=== PATIENT | female | born 1975 | race African-American/Black ===

== ENCOUNTER 2016-05-31 23:47 | Emergency (ER) | payer MEDICAID ==
[~2016-05-31] VITALS: Ht 165.1 cm; Wt 59.0 kg
[2016-06-01] MEDS ORDERED: MORPHINE SULFATE 10 MG/ML CPJ IM ONE (00:15)
[2016-06-01] MEDS ORDERED: LORAZEPAM 2MG/ML CPJ IM ONE (00:15)
[2016-06-01] MEDS ORDERED: LIDOCAINE HCL/EPINEPHRINE 1%-EPI 1:100,000 20 ML VIAL MC ONE (00:15)
[2016-06-01] MEDS ORDERED: BACITRACIN ZINC OINT UDPKT TOP ONE (00:15)
[2016-06-01 01:50] VITALS: BP 121/69
== END 2016-06-01 02:59 | disposition home or self-care (01) ==
LOC: ER 23:50
DX: S05.32XA Ocular laceration without prolapse or loss of intraocular tissue, left eye, initial encounter (principal); S01.511A Laceration without foreign body of lip, initial encounter; S09.8XXA Other specified injuries of head, initial encounter; F12.10 Cannabis abuse, uncomplicated; Z88.0 Allergy status to penicillin; Y08.89XA Assault by other specified means, initial encounter; Y93.89 Activity, other specified; Y99.8 Other external cause status; Y92.89 Other specified places as the place of occurrence of the external cause
CPT/HCPCS: 12011; 70450; 70486; 81025; 96372; 99284; J2060; J2270; J3490; X7700; Z7610

== ENCOUNTER 2024-08-29 19:58 | Inpatient (IN) | payer MEDICAID, OTHER ==
[~2024-08-29] VITALS: Ht 170.2 cm; Wt 69.4 kg
[2024-08-29] MEDS ORDERED: METHYLPREDNISOLONE SOD SUCC 125MG/2ML (ACT-O-VIAL) IV ONE (21:00)
[2024-08-29] MEDS ORDERED: DIAZEPAM 5 MG/ML 2ML SYR IV ONE (21:00)
[2024-08-29] MEDS ORDERED: LORAZEPAM 2MG/ML INJ IM ONE (22:00)
[2024-08-29] MEDS: LORAZEPAM 2MG/ML UD SYRINGE IM NR (22:21)
[2024-08-29 23:28] LABS: CLARITY URINE CLOUDY (CLEAR); COLOR URINE ORANGE (YELLOW); GLUCOSE URINE NEGATIVE (NEGATIVE); KETONES URINE 1+ (NEGATIVE); LEUKOCYTE ESTERASE URINE NEGATIVE (NEGATIVE); NITRITE URINE NEGATIVE (NEGATIVE); OCCULT BLOOD URINE 3+ (NEGATIVE); PROTEIN URINE 1+ (NEGATIVE); SPECIFIC GRAVITY URINE 1.009 (1.005-1.030); UROBILINOGEN URINE 0.2 E.U./dL (0.2-1.0)
[2024-08-29 23:52] LABS: *AMPHETAMINES SCREEN URINE NEGATIVE (NEGATIVE); *BARBITURATES SCREEN URINE NEGATIVE (NEGATIVE); *BENZODIAZEPINES SCREEN URINE NEGATIVE (NEGATIVE); *COCAINE SCREEN URINE PRESUMPTIVE POSITIVE (NEGATIVE)
[2024-08-29 23:53] LABS: CANNABINOID URINE SCREEN NEGATIVE (NEGATIVE); ECSTASY MDMA SCREEN URINE NEGATIVE (NEGATIVE); METHADONE URINE SCREEN NEGATIVE (NEGATIVE); OPIATES URINE SCREEN NEGATIVE (NEGATIVE); PHENCYCLIDINE URINE SCREEN NEGATIVE (NEGATIVE)
[2024-08-30] VITALS (7 sets, daily range): BP systolic 128–160; BP diastolic 78–90; PULSE 83–94; RESP 16–22; TEMP 36.2–36.6; O2SAT 92–100
[2024-08-30] MEDS ORDERED: P20 MT (00:51)
[2024-08-30] MEDS ORDERED: LEVO1TAB56 MT (00:51)
[2024-08-30] MEDS: HYDROCODONE/ACETAMINOPHEN 10/325MG TABLET PO PRN (02:00)
[2024-08-30 02:53] LABS: HEMATOCRIT. 26.6 % (36.0-48.0); HEMOGLOBIN. 7.7 g/dL (12.0-16.0); MEAN CORPUSCULAR HEMOGLOBIN 16.5 pg (28.0-32.0); MEAN CORPUSCULAR HGB CONC 29.1 g/dL (31.0-37.0); MEAN CORPUSCULAR VOLUME 56.9 fL (81.0-99.0); MEAN PLATELET VOLUME 8.5 fl (7.4-10.4); RED BLOOD CELL COUNT 4.67 mill/uL (4.2-5.4); RED CELL DISTRIBUTION WIDTH 24.3 % (11.6-14.6)
[2024-08-30 03:03] LABS: DIFFERENTIAL COMMENT 1
[2024-08-30 03:06] LABS: INR 1.1; PLATELET 1073 x1000/uL (130-400); PROTHROMBIN TIME 11.9 sec (9.6-11.0)
[2024-08-30 03:08] LABS: CARBON DIOXIDE 28 mEq/L (21-32); CHLORIDE 101 mEq/L (98-107); POTASSIUM 3.3 mEq/L (3.5-5.1); SODIUM 139 mEq/L (136-145)
[2024-08-30 03:09] LABS: CALCIUM 9.4 mg/dL (8.7-10.4)
[2024-08-30 03:13] LABS: CREATININE 0.9 mg/dL (0.6-1.0); GLUCOSE 254 mg/dL (70-105)
[2024-08-30 03:14] LABS: UREA NITROGEN BLOOD < 5 mg/dL (9-23)
[2024-08-30 03:15] LABS: CREATINE KINASE 113 IU/L (34-145)
[2024-08-30 04:20] LABS: HCG SCREEN NEGATIVE
[2024-08-30 04:24] LABS: SQUAMOUS EPITHELIAL CELL URINE 1+ /lpf (RARE/1+)
[2024-08-30 04:26] LABS: WBC URINE 0-2 /hpf (0-2)
[2024-08-30 04:28] LABS: BACTERIA URINE 2+
[2024-08-30] MEDS: POTASSIUM CHLORIDE 20MEQ TABLET SR PO NR (05:49)
[2024-08-30] MEDS: CLONIDINE 0.1MG TABLET PO PRN (05:49)
[2024-08-30 09:52] LABS: CARBON DIOXIDE 27 mEq/L (21-32); CHLORIDE 100 mEq/L (98-107); POTASSIUM 3.7 mEq/L (3.5-5.1); SODIUM 137 mEq/L (136-145)
[2024-08-30 09:53] LABS: CALCIUM 8.9 mg/dL (8.7-10.4); HEMATOCRIT. 26.8 % (36.0-48.0); HEMOGLOBIN. 7.8 g/dL (12.0-16.0); MEAN CORPUSCULAR HEMOGLOBIN 16.3 pg (28.0-32.0); MEAN CORPUSCULAR HGB CONC 28.9 g/dL (31.0-37.0); MEAN CORPUSCULAR VOLUME 56.6 fL (81.0-99.0); MEAN PLATELET VOLUME 8.7 fl (7.4-10.4); RED BLOOD CELL COUNT 4.74 mill/uL (4.2-5.4); RED CELL DISTRIBUTION WIDTH 24.4 % (11.6-14.6); WHITE BLOOD COUNT 10.1 x1000/uL (4.5-11.0)
[2024-08-30] MEDS: AMLODIPINE 10MG TABLET PO SCH (09:56)
[2024-08-30] MEDS: PREDNISONE 20MG TABLET PO SCH (09:56)
[2024-08-30] MEDS: HYDROXYCHLOROQUINE SULFATE 200MG TABLET PO SCH (09:56)
[2024-08-30 09:58] LABS: CREATININE 0.7 mg/dL (0.6-1.0); GLUCOSE 106 mg/dL (70-105); UREA NITROGEN BLOOD 6 mg/dL (9-23)
[2024-08-30 10:06] LABS: DIFFERENTIAL COMMENT 1
[2024-08-30 10:07] LABS: PLATELET 1150 x1000/uL (130-400)
[2024-08-30 10:08] LABS: C REACTIVE PROTEIN HIGH SENS 42.87 mg/l (<1.00)
[2024-08-30 10:41] LABS: ERYTHROCYTE SEDIMENTATION RATE 44 mm/hr (0-20)
[2024-08-30 11:37] LABS: HYPOCHROMASIA 2+
[2024-08-30 11:38] LABS: ANISOCYTOSIS 3+; OVALOCYTES FEW
[2024-08-30 11:40] LABS: TEAR DROP CELLS FEW
[2024-08-30 11:41] LABS: MICROCYTOSIS 3+
[2024-08-30 11:43] LABS: PLATELET ESTIMATE MARKEDLY INCREASED
[2024-08-30 12:00] LABS: HEPATITIS B SURFACE ANTIGEN NEGATIVE (Negative)
[2024-08-30 12:21] LABS: HEPATITIS C AB NON REACTIVE (Neg) (Negative)
[2024-08-30] MEDS ORDERED: NALOXONE HCL 0.4MG/ML VIAL IV PRN (13:15)
[2024-08-30] MEDS: KETOROLAC 30MG/ML VIAL IV PRN (16:27)
[2024-08-30 16:55] LABS: ANISOCYTOSIS 2+; HYPOCHROMASIA 3+; PLATELET ESTIMATE MARKEDLY INCREASED
[2024-08-30 16:56] LABS: MICROCYTOSIS 3+; TEAR DROP CELLS 1+
[2024-08-30 16:57] LABS: GIANT PLATELETS 1+; OVALOCYTES 1+; TARGET CELLS 1+
[2024-08-31] VITALS: BP 133/87; PULSE 88; RESP 19; TEMP 36.6; O2SAT 96
[2024-08-31 04:00] VITALS: BP 135/78; PULSE 89; RESP 21; TEMP 36.4; O2SAT 95
[2024-08-31 08:00] VITALS: BP 151/86; PULSE 89; RESP 20; TEMP 36.7; O2SAT 100
[2024-08-31 12:00] VITALS: BP 155/87; PULSE 78; RESP 20; TEMP 36.6; O2SAT 100
[2024-08-31 16:00] VITALS: BP 118/74; PULSE 88; RESP 16; TEMP 36.6; O2SAT 99
[2024-08-31] MEDS ORDERED: NALOXONE HCL 0.4MG/ML VIAL IV PRN (16:00)
[2024-08-31] MEDS: OXYCODONE HCL/ACETAMINOPHEN 5/325MG TABLET PO PRN (16:37)
[2024-08-31] MEDS: DIPHENHYDRAMINE 50MG/ML VIAL IV PRN (18:57)
[2024-08-31 20:00] VITALS: BP 124/72; PULSE 71; RESP 18; TEMP 36.3; O2SAT 100
[2024-09-01] VITALS: BP 133/80; PULSE 80; RESP 17; TEMP 36.3; O2SAT 100
[2024-09-01 04:00] VITALS: BP 139/76; PULSE 70; RESP 18; TEMP 36.3; O2SAT 98
[2024-09-01 08:00] VITALS: BP 108/75; PULSE 88; RESP 18; TEMP 36.2; O2SAT 98
[2024-09-01 12:00] VITALS: BP 129/72; PULSE 89; RESP 20; TEMP 36.5; O2SAT 100
[2024-09-01 14:21] VITALS: RESP 20
[2024-09-01 16:08] VITALS: BP 129/72; PULSE 89; TEMP 97.7; O2SAT 100
[2024-09-01] MEDS ORDERED: P20 MT (16:29)
[2024-09-01] MEDS ORDERED: HYDR200T80 MT (16:29)
[2024-09-01] MEDS ORDERED: AMLO10TA80 MT (16:29)
[2024-09-10] MEDS ORDERED: DICL75TA5 PO (11:09)
[2024-09-10] MEDS ORDERED: BUPR100T13 PO (11:09)
[2024-09-10] MEDS ORDERED: [UNRECOGNIZED DRUG - CODE] PO (11:09)
[2024-09-10] MEDS ORDERED: PRED10TA PO (11:09)
[2024-09-10] MEDS ORDERED: AMLO10TA80 PO (11:09)
[2024-09-10] MEDS ORDERED: PREG100C55 PO (11:09)
[2024-09-10] MEDS ORDERED: HYDR-4001 PO (11:09)
[2024-09-10] MEDS ORDERED: FERR-63 PO (11:09)
[2024-09-10] MEDS ORDERED: POLY17PO43 PO (11:09)
[2024-09-10] MEDS ORDERED: HYDR200T80 PO (11:09)
[2024-09-14] MEDS ORDERED: OXYC-100 PO (08:32)
[2024-09-14] MEDS ORDERED: GABA-290 PO (08:32)
[2024-09-25] MEDS ORDERED: HYDR200T80 PO (12:00)
[2024-09-25] MEDS ORDERED: DICL75TA5 PO (12:00)
[2024-09-25] MEDS ORDERED: PRED10TA PO (12:00)
== END 2024-09-01 16:35 | disposition home or self-care (01) | DRG 346 ==
LOC: ER 19:58 → 7WST 23:02 → EDBEDREQTM 23:16 → EDBEDREQ 23:16 → ENRESERV 23:45
PROVIDERS: ADMIT Internal Medicine; ATTEND Internal Medicine
DX: M32.9 Systemic lupus erythematosus, unspecified (principal); D64.9 Anemia, unspecified; N92.0 Excessive and frequent menstruation with regular cycle; F14.90 Cocaine use, unspecified, uncomplicated; F17.210 Nicotine dependence, cigarettes, uncomplicated; G62.9 Polyneuropathy, unspecified; T44.995A Adverse effect of other drug primarily affecting the autonomic nervous system, initial encounter; Z88.0 Allergy status to penicillin; Y92.89 Other specified places as the place of occurrence of the external cause
CPT/HCPCS: 36415; 80048; 80305; 81003; 82550; 83735; 84703; 85025; 85651; 86038; 86141; 86705; 86850; 86900; 87340; 99291; A4606; J1200; J1885; J2060; J7512

== ENCOUNTER 2024-10-29 09:57 | Emergency (ER) | payer MEDICAID ==
[~2024-10-29] VITALS: Ht 160 cm; Wt 60.0 kg
[~2024-10-29 09:57] MED LIST: BUPR100T13 PO; DICL75TA5 PO; FERR-63 PO; HYDR-4001 PO; HYDR200T80 PO; LEVO1TAB56 MT; OXYC-100 PO; POLY17PO43 PO; PRED10TA PO; PREG100C55 PO; [UNRECOGNIZED DRUG - CODE] PO
[2024-10-29 10:01] VITALS: O2SAT 98
[2024-10-29] MEDS: IBUPROFEN 400MG TABLET PO ONE (10:58)
[2024-10-29] MEDS: HYDROCODONE/ACETAMINOPHEN 7.5/325MG TABLET PO ONE (10:59)
[2024-10-29 11:04] LABS: CLARITY URINE CLOUDY (CLEAR); COLOR URINE YELLOW (YELLOW); GLUCOSE URINE NEGATIVE (NEGATIVE); KETONES URINE TRACE (NEGATIVE); LEUKOCYTE ESTERASE URINE NEGATIVE (NEGATIVE); NITRITE URINE NEGATIVE (NEGATIVE); OCCULT BLOOD URINE NEGATIVE (NEGATIVE); PH URINE 8.5 (4.5-8.0); PROTEIN URINE NEGATIVE (NEGATIVE); SPECIFIC GRAVITY URINE 1.015 (1.005-1.030); UROBILINOGEN URINE 0.2 E.U./dL (0.2-1.0)
[2024-10-29] MEDS: CARISOPRODOL 350 MG TABLET PO ONE (11:15)
[2024-10-29 11:23] LABS: AMORPHOUS SEDIMENT URINE 1+ /lpf; BACTERIA URINE 4+; SQUAMOUS EPITHELIAL CELL URINE 1+ /lpf (RARE/1+); WBC URINE 0-2 /hpf (0-2)
[2024-10-29 11:24] LABS: RBC URINE NONE SEEN /hpf (0-2)
[2024-10-29 11:29] LABS: BASOPHILS % 0.7 % (0.0-2.0); EOSINOPHILS % 2.8 % (0.0-5.0); HEMATOCRIT. 37.3 % (36.0-48.0); HEMOGLOBIN. 11.6 g/dL (12.0-16.0); LYMPHOCYTES % 13.2 % (20.0-50.0); MEAN PLATELET VOLUME 9.1 fl (7.4-10.4); MONOCYTES % 6.7 % (2.0-8.0); NEUTROPHILS % 76.6 % (40.0-76.0); PLATELET 366 x1000/uL (130-400); RED BLOOD CELL COUNT 5.33 mill/uL (4.2-5.4); RED CELL DISTRIBUTION WIDTH 31.7 % (11.6-14.6)
[2024-10-29 11:32] LABS: ADD RBC MORPHOLOGY YES
[2024-10-29 11:37] LABS: *AMPHETAMINES SCREEN URINE NEGATIVE (NEGATIVE); *BARBITURATES SCREEN URINE NEGATIVE (NEGATIVE); *BENZODIAZEPINES SCREEN URINE NEGATIVE (NEGATIVE); *COCAINE SCREEN URINE PRESUMPTIVE POSITIVE (NEGATIVE); CANNABINOID URINE SCREEN NEGATIVE (NEGATIVE); ECSTASY MDMA SCREEN URINE NEGATIVE (NEGATIVE); METHADONE URINE SCREEN NEGATIVE (NEGATIVE); OPIATES URINE SCREEN NEGATIVE (NEGATIVE); PHENCYCLIDINE URINE SCREEN NEGATIVE (NEGATIVE)
[2024-10-29 11:40] LABS: INR 1.0
[2024-10-29 11:44] LABS: CREATININE 0.6 mg/dL (0.6-1.0); ETHANOL BLOOD < 10 mg/dL (<10); HCG SCREEN NEGATIVE; UREA NITROGEN BLOOD < 5 mg/dL (9-23)
[2024-10-29 11:45] LABS: ASPARTATE AMINOTRANSFERASE 13 IU/L (<34)
[2024-10-29 11:46] LABS: BILIRUBIN DIRECT < 0.1 mg/dL (<=3.0); BILIRUBIN TOTAL 0.3 mg/dL (0.1-1.0); PHOSPHORUS 2.3 mg/dL (2.5-4.9); PROTEIN TOTAL 7.5 g/dL (6.0-8.3)
[2024-10-29 11:50] LABS: PLATELET ESTIMATE NORMAL
[2024-10-29] MEDS ORDERED: HYDR-4001 MT (12:05)
[2024-10-29] MEDS ORDERED: PREG100C MT (12:13)
[2024-10-29] MEDS ORDERED: BUPR100T13 MT (12:13)
[2024-10-29] MEDS: METHYLPREDNISOLONE SOD SUCC 125MG/2ML (ACT-O-VIAL) IM ONE (12:25)
[2024-10-29] MEDS: POTASSIUM CHLORIDE 20MEQ TABLET SR PO ONE (12:25)
[2024-10-29] MEDS: POTASSIUM-SODIUM PHOSPHATE POWDER PACKET PO ONE (12:26)
[2024-10-29] MEDS: BUPROPION HCL 100MG SR TABLET PO ONE (12:26)
[2024-10-29 12:44] VITALS: BP 130/78; PULSE 90; RESP 16; TEMP 36.8; O2SAT 99
[2024-11-18] MEDS ORDERED: BUPR75TA94 PO (12:55)
[2024-11-18] MEDS ORDERED: HYDR200T80 PO (12:55)
[2024-11-18] MEDS ORDERED: METH2.5T PO (12:55)
[2024-11-18] MEDS ORDERED: FERR-63 PO (12:55)
[2024-11-18] MEDS ORDERED: PREG75CA76 PO (12:55)
[2024-11-18] MEDS ORDERED: ASCO-494 PO (12:55)
[2024-11-18] MEDS ORDERED: FOLI-43 PO (12:55)
[2024-11-18] MEDS ORDERED: PRED10TA PO ×2 (12:55)
== END 2024-10-29 13:00 | disposition home or self-care (01) ==
LOC: ER 09:57
DX: G89.29 Other chronic pain (principal); M79.7 Fibromyalgia; I10 Essential (primary) hypertension; F11.10 Opioid abuse, uncomplicated; Z88.1 Allergy status to other antibiotic agents; Z88.0 Allergy status to penicillin; Z76.0 Encounter for issue of repeat prescription; Z79.899 Other long term (current) drug therapy; Z87.891 Personal history of nicotine dependence; Z86.73 Personal history of transient ischemic attack (TIA), and cerebral infarction without residual deficits
CPT/HCPCS: 80076; 80305; 80048; 81003; 81025; 80320; 82550; 84703; 83690; 83735; 84100; 85025; 85610; 36415; 93005; 96372; 99284; J2919; Z7610; G0480

== ENCOUNTER 2024-12-20 11:18 | Emergency (ER) | payer MEDICAID ==
[~2024-12-20] VITALS: Ht 167.6 cm; Wt 69.0 kg
[~2024-12-20 11:18] MED LIST changes: +ASCO-494 PO; -BUPR100T13 PO; +BUPR75TA94 PO; +FOLI-43 PO; -HYDR-4001 PO; -LEVO1TAB56 MT; +METH2.5T PO; -OXYC-100 PO; -PREG100C55 PO; +PREG75CA76 PO
[2024-12-20 11:20] VITALS: TEMP 36.6; O2SAT 100
[2024-12-20 11:51] LABS: BASOPHILS % 0.8 % (0.0-2.0); EOSINOPHILS % 3.0 % (0.0-5.0); HEMATOCRIT. 32.6 % (36.0-48.0); HEMOGLOBIN. 10.1 g/dL (12.0-16.0); LYMPHOCYTES % 11.5 % (20.0-50.0); MEAN PLATELET VOLUME 7.0 fl (7.4-10.4); MONOCYTES % 8.1 % (2.0-8.0); NEUTROPHILS % 76.6 % (40.0-76.0); PLATELET 471 x1000/uL (130-400); RED BLOOD CELL COUNT 4.36 mill/uL (4.2-5.4); RED CELL DISTRIBUTION WIDTH 19.4 % (11.6-14.6)
[2024-12-20] MEDS: KETOROLAC 15MG/ML VIAL IV ONE (12:02)
[2024-12-20] MEDS: SODIUM CHLORIDE 0.9% 1,000 ML IV ONE (12:03)
[2024-12-20 12:09] LABS: CREATININE 0.6 mg/dL (0.6-1.0); UREA NITROGEN BLOOD 7 mg/dL (9-23)
[2024-12-20 12:10] LABS: TROPONIN I HIGH SENSITIVITY < 4 ng/L (3.0-34)
[2024-12-20 12:11] LABS: ASPARTATE AMINOTRANSFERASE 17 IU/L (<34); BILIRUBIN DIRECT < 0.1 mg/dL (<=3.0); BILIRUBIN TOTAL 0.3 mg/dL (0.1-1.0)
[2024-12-20 12:12] LABS: PROTEIN TOTAL 6.7 g/dL (6.0-8.3)
[2024-12-20 12:20] LABS: INR 1.0
[2024-12-20 12:21] LABS: HCG SCREEN NEGATIVE
[2024-12-20] MEDS: METHYLPREDNISOLONE SOD SUCC 125MG/2ML (ACT-O-VIAL) IV ONE (12:26)
[2024-12-20] MEDS: MORPHINE SULFATE 4 MG/ML INJ (FOR IV/IM USE) IV ONE (12:28)
[2024-12-20] MEDS ORDERED: P50 MT (15:09)
[2024-12-20] MEDS ORDERED: DICL75TA5 PO (15:09)
[2024-12-20 15:18] VITALS: O2SAT 100
[2024-12-20 15:28] VITALS: BP 150/91; PULSE 88; RESP 18
[2024-12-20] MEDS: OXYCODONE HCL/ACETAMINOPHEN 5/325MG TABLET PO ONE (15:28)
[2025-01-15] MEDS ORDERED: HYDR200T35 PO (14:09)
[2025-01-15] MEDS ORDERED: P20 PO (14:09)
[2025-01-15] MEDS ORDERED: GABA-290 PO (21:36)
== END 2024-12-20 15:49 | disposition home or self-care (01) ==
LOC: ER 11:44
DX: M32.9 Systemic lupus erythematosus, unspecified (principal); F41.9 Anxiety disorder, unspecified; E11.9 Type 2 diabetes mellitus without complications; F31.9 Bipolar disorder, unspecified; Z79.899 Other long term (current) drug therapy; Z88.0 Allergy status to penicillin; Z88.1 Allergy status to other antibiotic agents
CPT/HCPCS: 80076; 80048; 84703; 83880; 85025; 85610; 85730; 84484; 36415; 71045; 96361; 96374; 96375; 99285; J1885; J2919; J2270; J7030; Z7610; A4606

== ENCOUNTER 2025-01-07 04:01 | Inpatient (IN) | payer MEDICAID ==
[~2025-01-07] VITALS: Ht 162.6 cm; Wt 59.0 kg
[~2025-01-07 04:01] MED LIST changes: +P50 MT
[2025-01-07 04:05] VITALS: O2SAT 100
[2025-01-07] MEDS: ONDANSETRON HCL 4MG/2ML INJ IV NR (06:26)
[2025-01-07] MEDS: MORPHINE SULFATE 4 MG/ML INJ (FOR IV/IM USE) IV NR (06:27)
[2025-01-07] MEDS: SODIUM CHLORIDE 0.9% 1,000 ML IV ONE (06:27)
[2025-01-07] MEDS ORDERED: SODIUM CHLORIDE 0.9% 1,000 ML IV ONE (07:00)
[2025-01-07] MEDS: MORPHINE SULFATE 4 MG/ML INJ (FOR IV/IM USE) IV ONE (07:00)
[2025-01-07 08:56] LABS: BASOPHILS % 0.4 % (0.0-2.0); EOSINOPHILS % 3.2 % (0.0-5.0); HEMATOCRIT. 32.2 % (36.0-48.0); HEMOGLOBIN. 10.0 g/dL (12.0-16.0); LYMPHOCYTES % 8.7 % (20.0-50.0); MEAN PLATELET VOLUME 7.6 fl (7.4-10.4); MONOCYTES % 10.6 % (2.0-8.0); NEUTROPHILS % 77.1 % (40.0-76.0); PLATELET 420 x1000/uL (130-400); RED BLOOD CELL COUNT 4.33 mill/uL (4.2-5.4); RED CELL DISTRIBUTION WIDTH 18.5 % (11.6-14.6)
[2025-01-07] MEDS ORDERED: DEXTROSE 50% WATER 50ML SYRINGE IV PRN (09:00)
[2025-01-07] MEDS ORDERED: ACETAMINOPHEN 325MG TABLET PO PRN (09:00)
[2025-01-07] MEDS ORDERED: DOCUSATE SODIUM 250MG CAPSULE PO PRN (09:00)
[2025-01-07] MEDS ORDERED: IPRATROPIUM/ALBUTEROL 0.5-3(2.5)MG/3ML NEB HHN PRN (09:00)
[2025-01-07 09:09] LABS: UREA NITROGEN BLOOD < 5 mg/dL (9-23)
[2025-01-07 09:19] LABS: CREATININE 0.4 mg/dL (0.6-1.0)
[2025-01-07] MEDS ORDERED: BUPR100T13 PO (09:40)
[2025-01-07] MEDS ORDERED: PREG100C55 PO (09:40)
[2025-01-07] MEDS ORDERED: AMLO10TA80 PO (09:40)
[2025-01-07] MEDS ORDERED: CYCL10TA21 PO (09:40)
[2025-01-07] MEDS ORDERED: NALOXONE HCL 0.4MG/ML VIAL IV PRN (09:45)
[2025-01-07] MEDS: FOLIC ACID 1MG TABLET PO SCH (09:48)
[2025-01-07] MEDS: POTASSIUM CHLORIDE 20MEQ TABLET SR PO NR (09:49)
[2025-01-07] MEDS: TRAMADOL 50MG TABLET PO PRN (09:49)
[2025-01-07] MEDS: METHYLPREDNISOLONE SOD SUCC 40MG/ML (ACT-O-VIAL) IV SCH (09:49)
[2025-01-07] MEDS: PANTOPRAZOLE SODIUM 40 MG/VIAL IV SCH (09:50)
[2025-01-07] MEDS: SODIUM CHLORIDE 0.9% 500 ML IV ONE (09:51)
[2025-01-07] MEDS: FERROUS SULFATE 325MG TABLET PO SCH (10:03)
[2025-01-07 11:22] LABS: PHOSPHORUS 2.2 mg/dL (2.5-4.9)
[2025-01-07 11:24] LABS: INR 1.0
[2025-01-07 12:21] LABS: *AMPHETAMINES SCREEN URINE NEGATIVE (NEGATIVE); *BARBITURATES SCREEN URINE NEGATIVE (NEGATIVE); *BENZODIAZEPINES SCREEN URINE NEGATIVE (NEGATIVE); *COCAINE SCREEN URINE PRESUMPTIVE POSITIVE (NEGATIVE)
[2025-01-07 12:22] LABS: CANNABINOID URINE SCREEN NEGATIVE (NEGATIVE); ECSTASY MDMA SCREEN URINE NEGATIVE (NEGATIVE); METHADONE URINE SCREEN NEGATIVE (NEGATIVE); OPIATES URINE SCREEN NEGATIVE (NEGATIVE); PHENCYCLIDINE URINE SCREEN NEGATIVE (NEGATIVE)
[2025-01-07] MEDS: PREGABALIN 75MG CAPSULE PO SCH (12:57)
[2025-01-07] MEDS: HYDROXYCHLOROQUINE SULFATE 200MG TABLET PO SCH (12:58)
[2025-01-07] MEDS: ASCORBIC ACID 250 MG TABLET PO SCH (12:58)
[2025-01-07] MEDS: DICLOFENAC SODIUM 75MG DR TABLET PO SCH (12:58)
[2025-01-07] MEDS: AMLODIPINE 10MG TABLET PO SCH (12:59)
[2025-01-07] MEDS: ENOXAPARIN 40MG/0.4ML SYR SUBCUT SCH (13:00)
[2025-01-07] MEDS: BUPROPION HCL 100MG SR TABLET PO SCH (15:09)
[2025-01-07 15:30] VITALS: BP 128/77; PULSE 86; RESP 20; TEMP 36.3068
[2025-01-07 16:00] VITALS: BP_SYST 128; BP_SYST 132; BP_DIAS 76; BP_DIAS 77; PULSE 84; PULSE 86; RESP 18; RESP 20; TEMP 36.2; TEMP 36.3; O2SAT 100
[2025-01-07] MEDS: BLOOD SUGAR DIAGNOSTIC STRIP TEST SCH (17:42)
[2025-01-07 20:00] VITALS: BP 116/69; PULSE 82; RESP 17; TEMP 36.6; O2SAT 97
[2025-01-07] MEDS ORDERED: SENNOSIDES/DOCUSATE SOD 8.6/50MG TABLET PO PRN (21:00)
[2025-01-07] MEDS ORDERED: BUPROPION HCL 75MG TABLET PO SCH ×3 (21:00)
[2025-01-08] VITALS: BP 121/66; PULSE 83; RESP 17; TEMP 36.1; O2SAT 97
[2025-01-08] MEDS: ACETAMINOPHEN 325MG TABLET PO PRN (01:24)
[2025-01-08 04:00] VITALS: BP 131/88; PULSE 82; RESP 18; TEMP 36.6; O2SAT 98
[2025-01-08 08:00] VITALS: BP 136/76; PULSE 79; RESP 16; TEMP 36.3; O2SAT 95
[2025-01-08] MEDS: POTASSIUM-SODIUM PHOSPHATE POWDER PACKET PO SCH (08:40)
[2025-01-08] MEDS: FERROUS SULFATE 325MG TABLET PO SCH (08:41)
[2025-01-08] MEDS: ASCORBIC ACID 250 MG TABLET PO SCH (08:42)
[2025-01-08] MEDS: MAGNESIUM 2 G PREMIX 50 ML IV NR (08:46)
[2025-01-08 08:49] LABS: CREATININE 0.5 mg/dL (0.6-1.0)
[2025-01-08 08:50] LABS: UREA NITROGEN BLOOD 10 mg/dL (9-23)
[2025-01-08 08:51] LABS: ASPARTATE AMINOTRANSFERASE 8 IU/L (<34)
[2025-01-08 08:52] LABS: BILIRUBIN DIRECT < 0.1 mg/dL (<=3.0); BILIRUBIN TOTAL 0.2 mg/dL (0.1-1.0); PHOSPHORUS 2.3 mg/dL (2.5-4.9); PROTEIN TOTAL 6.9 g/dL (6.0-8.3)
[2025-01-08 08:53] LABS: T4 FREE 0.95 ng/dL (0.89-1.76)
[2025-01-08 09:26] LABS: BASOPHILS % 0.1 % (0.0-2.0); EOSINOPHILS % 0.0 % (0.0-5.0); HEMATOCRIT. 32.5 % (36.0-48.0); HEMOGLOBIN. 10.2 g/dL (12.0-16.0); LYMPHOCYTES % 7.7 % (20.0-50.0); MEAN PLATELET VOLUME 7.9 fl (7.4-10.4); MONOCYTES % 2.9 % (2.0-8.0); NEUTROPHILS % 89.3 % (40.0-76.0); PLATELET 462 x1000/uL (130-400); RED BLOOD CELL COUNT 4.39 mill/uL (4.2-5.4); RED CELL DISTRIBUTION WIDTH 18.0 % (11.6-14.6)
[2025-01-08] MEDS: ONDANSETRON HCL 4MG/2ML INJ IV PRN (11:28)
[2025-01-08 12:00] VITALS: BP_SYST 119; BP_SYST 86; BP_DIAS 56; BP_DIAS 72; PULSE 60; PULSE 78; RESP 15; RESP 17; TEMP 36.4; O2SAT 96
[2025-01-08 13:40] LABS: FOLIC ACID (FOLATE) SERUM > 20.00 ng/mL (>5.38); VITAMIN B12 SERUM 683 pg/mL (211-911)
[2025-01-08 16:00] VITALS: BP 130/79; PULSE 83; RESP 16; TEMP 36.6; O2SAT 97
[2025-01-08 19:04] LABS: *AMPHETAMINES SCREEN URINE NEGATIVE (NEGATIVE); *BARBITURATES SCREEN URINE NEGATIVE (NEGATIVE); *BENZODIAZEPINES SCREEN URINE NEGATIVE (NEGATIVE); *COCAINE SCREEN URINE PRESUMPTIVE POSITIVE (NEGATIVE)
[2025-01-08 19:05] LABS: CANNABINOID URINE SCREEN NEGATIVE (NEGATIVE); ECSTASY MDMA SCREEN URINE NEGATIVE (NEGATIVE); METHADONE URINE SCREEN NEGATIVE (NEGATIVE); OPIATES URINE SCREEN NEGATIVE (NEGATIVE); PHENCYCLIDINE URINE SCREEN NEGATIVE (NEGATIVE)
[2025-01-08 20:00] VITALS: BP 119/70; PULSE 81; RESP 18; TEMP 36.1; O2SAT 98
[2025-01-08] MEDS: BUSPIRONE HCL 10MG TABLET PO SCH (20:33)
[2025-01-08] MEDS: CARISOPRODOL 350 MG TABLET PO PRN (20:37)
[2025-01-08] MEDS ORDERED: DICLOFENAC SODIUM 75MG DR TABLET PO SCH (21:00)
[2025-01-09] VITALS: BP 122/70; PULSE 78; RESP 18; TEMP 36.7; O2SAT 98
[2025-01-09] MEDS: METHYLPREDNISOLONE SOD SUCC 40MG/ML (ACT-O-VIAL) IV SCH (00:49)
[2025-01-09 04:00] VITALS: BP 138/64; PULSE 81; RESP 18; TEMP 36.7; O2SAT 98
[2025-01-09 08:49] VITALS: BP 102/73; PULSE 88; RESP 18; TEMP 36.4; O2SAT 96
[2025-01-09] MEDS ORDERED: METHOTREXATE SODIUM 2 . 5MG TABLET PO SCH ×2 (09:00→17:00)
[2025-01-09] MEDS: METHOTREXATE SODIUM 2 . 5MG TABLET PO SCH ×2 (10:17→13:00)
[2025-01-09] MEDS ORDERED: METH2.5T MT (12:54)
[2025-01-09] MEDS ORDERED: CLOT21CR6 VG (12:54)
[2025-01-09] MEDS: INSULIN LISPRO 100 UNITS/ML SUBCUT SCH (12:56)
[2025-01-09 13:05] VITALS: BP 117/77; PULSE 96; RESP 18; TEMP 36.5; O2SAT 98
[2025-01-09 13:10] VITALS: BP 117/77; PULSE 96; RESP 18; TEMP 97.7
[2025-01-09] MEDS ORDERED: CLOTRIMAZOLE 1% VAGINAL CREAM 45GM VG SCH (21:00)
[2025-01-13] MEDS ORDERED: METHOTREXATE SODIUM 2 . 5MG TABLET PO SCH ×4 (09:00→17:00)
[2025-01-15] MEDS ORDERED: HYDR200T35 PO (14:09)
[2025-01-15] MEDS ORDERED: P20 PO (14:09)
[2025-01-15] MEDS ORDERED: GABA-290 PO (21:36)
== END 2025-01-09 14:57 | disposition home or self-care (01) | DRG 346 ==
LOC: ER 04:01 → EDBEDREQ 08:21 → EDBEDREQTM 08:21 → ENRESERV 13:56 → 6WST 17:14
PROVIDERS: ADMIT Hospitalist; ATTEND Hospitalist
DX: M06.8A Other specified rheumatoid arthritis, other specified site (principal); D58.9 Hereditary hemolytic anemia, unspecified; Z59.00 Homelessness unspecified; D24.1 Benign neoplasm of right breast; D50.0 Iron deficiency anemia secondary to blood loss (chronic); F11.10 Opioid abuse, uncomplicated; M79.7 Fibromyalgia; M32.9 Systemic lupus erythematosus, unspecified; D25.9 Leiomyoma of uterus, unspecified; I10 Essential (primary) hypertension; F41.9 Anxiety disorder, unspecified; N93.9 Abnormal uterine and vaginal bleeding, unspecified; F14.10 Cocaine abuse, uncomplicated; F17.210 Nicotine dependence, cigarettes, uncomplicated; F31.9 Bipolar disorder, unspecified; Z59.71 Insufficient health insurance coverage; Z79.899 Other long term (current) drug therapy; Z80.3 Family history of malignant neoplasm of breast; Z88.0 Allergy status to penicillin; Z88.1 Allergy status to other antibiotic agents; Z88.8 Allergy status to other drugs, medicaments and biological substances; Z71.51 Drug abuse counseling and surveillance of drug abuser; R73.03 Prediabetes; G62.9 Polyneuropathy, unspecified
CPT/HCPCS: 36415; 80048; 80076; 80305; 82550; 82607; 82746; 82962; 83540; 83550; 83735; 84100; 84439; 84443; 85025; 85651; 86431; 96361; 96374; 96375; 99285; J1650; J1815; J2270; J2405; J2470; J2919; J3475; J7030; J8610